=== PATIENT | female | born 1985 | race Caucasian/White ===

== ENCOUNTER 2020-05-11 18:59 | Emergency (ER) | payer BC, SELFPAY ==
--- NOTE | 2020-05-11 19:22 | ED.URI ---
HPI - URI/Sore Throat General Chief Complaint: Upper Respiratory Infection Stated Complaint: possible strep Time Seen by Provider: 05/11/20 19:22 Source: patient and RN notes reviewed History of Present Illness HPI Narrative: Patient is a 34-year-old female who presents the urgent care with complaints of possible strep. Patient states that she has had a sore throat since yesterday and filled out the questionnaire through her workplace, [employer], for coronavirus which stated that she should be tested for strep. Patient did not meet the requirements for Christopher testing through her work. Patient denies of any known fever, nausea, vomiting, other upper respiratory symptoms. Denies of taking anything [id number] for her symptoms. No other acute complaints. No acute distress noted. Patient read the plan of care. Related Data Home Medications Medication Instructions Recorded Confirmed No Home Medications 05/11/20 05/11/20 Allergies Allergy/AdvReac Type Severity Reaction Status Date / Time Penicillins Allergy Unknown Verified 05/11/20 19:29 Review of Systems Review of Systems: Narrative: CONSTITUTIONAL: Denies fever, chills, or sweats. EYES: Denies visual changes, redness, or discharge. ENT: Reports of sore throat CARDIOVASCULAR: Denies chest pain, palpitations, or edema. RESPIRATORY: Denies cough or dyspnea. GASTROINTESTINAL: Denies abdominal pain, nausea, vomiting, or diarrhea. GENITOURINARY: Denies dysuria or hematuria. SKIN: Denies rash or itching. MUSCULOSKELETAL: Denies back pain, joint pain, or myalgia. NEUROLOGIC: Denies headache, numbness, or weakness. All other systems reviewed are negative, except as documented in HPI. PMFSH Comments At the time of my signature, I reviewed and agree with the nursing past medical, surgical, social, and family history. There is no relevant family history pertinent to the patient complaint. Exam Narrative: Exam Narrative: GENERAL: This is a well-nourished, well-developed patient, in no apparent distress. HEAD: normocephalic, atraumatic. EYES: PERRL. Sclera clear/white. Vision is grossly intact. EARS: External ears normal, auditory canals clear and without drainage, TMs normal without perforation. Hearing grossly intact. NOSE: External nose normal with no obvious nasal discharge, nares without redness, no rhinorrhea. THROAT: Mucous membranes moist, moderate postnasal drainage without erythema, exudate or ulceration NECK: Neck supple, non-tender without lymphadenopathy, masses or thyromegaly. SKIN: warm, intact with no suspicious lesions or rash, good texture and turgor. NEURO: awake, alert, and oriented to person, place and time. There were no obvious focal neurologic abnormalities. EXTREMITIES: No clubbing, cyanosis, or edema. Course Vital Signs Vital signs: Vital Signs Temperature 97.1 F L 05/11/20 19:27 Pulse Rate 75 05/11/20 19:27 Respiratory Rate 16 05/11/20 19:27 Blood Pressure 126/79 05/11/20 19:27 Pulse Oximetry 100 05/11/20 19:27 Temperature 97.1 F L 05/11/20 19:27 Pulse Rate 75 05/11/20 19:27 Respiratory Rate 16 05/11/20 19:27 Blood Pressure 126/79 05/11/20 19:27 Pulse Oximetry 100 05/11/20 19:27 Reviewed MDM - URI/Sore Throat MDM Narrative Medical decision making narrative: Reviewed lab results with the patient. She is aware that strep swab was negative. Educated her on culture and we will call within 72 hours if culture is positive and antibiotics are necessary. Advised the patient to use [id number] medication for postnasal drainage such as Claritin and Flonase. Such medications will help with symptom relief. Use Tylenol/ibuprofen as needed for pain. Increase fluids. Follow-up with your PCP within 2 to 5 days or for worsening symptoms or failure to improve. Differential Diagnosis Differential diagnosis: Likely upper respiratory infection, otitis media, sinusitis, viral infection, bronchitis and pharyngitis Lab Data Attes
[2020-05-11 19:27] VITALS: BP 126/79; PULSE 75; RESP 16; TEMP 36.2; O2SAT 100
== END 2020-05-11 19:41 | disposition home or self-care (01) ==
PROVIDERS: Emergency Provider Nurse Practitioner Family
DX: J02.9 Acute pharyngitis, unspecified (principal)
CPT/HCPCS: 87081; 87880; 99213; G0463